=== PATIENT | male | born 1995 | race Caucasian/White ===

== ENCOUNTER 2022-03-03 07:01 | Emergency (ER) | payer OTHER, SELFPAY ==
[2022-03-03] MEDS ORDERED: Ondansetron ODT 4 MG TAB ONE (07:21)
[2022-03-03] MEDS ORDERED: Ibuprofen 800 MG TAB ONE (07:55)
== END 2022-03-03 08:00 | disposition home or self-care (01) ==
LOC: NAV ERS 07:01
DX: B34.9 Viral infection, unspecified (principal)
CPT/HCPCS: 99283; Q0162